=== PATIENT | female | born 1940 | race Caucasian/White ===

== ENCOUNTER 2017-11-22 10:09 | Outpatient (CLI) | payer MEDICARE | END 2017-11-22 10:10 | disposition home or self-care (01) | LOC: BICULT 10:09 | PROVIDERS: ATTEND Internal Medicine Gastroenterology | DX: K76.9 Liver disease, unspecified (principal); K76.0 Fatty (change of) liver, not elsewhere classified | CPT/HCPCS: 76705 ==

== ENCOUNTER 2018-02-02 09:35 | Inpatient (IN) | payer MEDICARE ==
[2018-02-02 10:05] LABS: #Lymphocytes 0.5 thou/uL (1.20-3.40); #Monocytes 0.6 thou/uL (0.11-0.59); #Neutrophils 8.9 thou/uL (1.40-6.50); %Basophils 0.1 % (0.0-1.0); %Eosinophils 0.1 % (0.0-10.0); %Lymphocytes 4.9 % (21.0-51.0); %Monocytes 6.2 % (0.0-10.0); %Neutrophils 88.7 % (42.0-75.0); Mean Corpuscular HGB CONC 34.4 g/dL (32.0-36.0); Mean Corpuscular Hemoglobin 31.6 pg (27.0-31.0); Mean Corpuscular Volume 91.8 fl (81.0-99.0); Mean Platelet Volume 7.9 fL (7.4-10.4); Platelet Count 141 thou/uL (130-400); RBC Distribution Width 12.4 % (11.5-14.5); Red Blood Cell (RBC) Count 4.43 mill/uL (4.20-5.40)
[2018-02-02 10:26] LABS: ALT (SGPT) 36 U/L (8-55); AST (SGOT) 51 U/L (5-34); Alkaline Phosphatase 71 U/L (40-150); Anion Gap 16 mmol/L (10-20); BUN (Urea Nitrogen) 20 mg/dL (9.8-20.1); Bilirubin, Total 1.5 mg/dL (0.2-1.2); CK (CPK) 91 U/L (29-168); Calc. Creatinine Clearance 0 mL/min (70-130); Calcium 9.2 mg/dL (7.8-10.44); Carbon Dioxide 22 mmol/L (23-31); Chloride 100 mmol/L (98-107); Estimated GFR-MDRD 53; Globulin 3.2 g/dL (2.4-3.5); Glucose 178 mg/dL (83-110); Potassium 4.3 mmol/L (3.5-5.1); Protein, Total 7.2 g/dL (6.0-8.3); Sodium 134 mmol/L (136-145)
[2018-02-02 10:29] LABS: CKMB 0.8 ng/mL (0-6.6); Troponin I 0.018 ng/mL (< 0.028)
[2018-02-02 10:38] LABS: Bilirubin Negative (Negative); Blood, Urine Small (Negative); Glucose, Urine (Dipstick) Negative (Negative); Leukocyte Negative (Negative); Nitrite Negative (Negative); Protein, Urine (Dipstick) 100 mg/dL (Neg-Trace); Specific Gravity, Urine 1.025 (1.005-1.030)
[2018-02-02 10:42] LABS: Clarity Clear (Clear)
--- NOTE | 2018-02-02 10:52 | RAD ---
CHEST 1 VIEW: Date: 02/02/18 HISTORY: Fever. Altered mental status. COMPARISON: None. FINDINGS: Normal cardiac silhouette. Pulmonary vessels and hilum are normal. Costophrenic angles are clear. No masses or consolidation. No pneumothorax or osseous abnormalities. IMPRESSION: No acute cardiopulmonary process. POS: [facility]
[2018-02-02 10:53] LABS: Bacteria/HPF None Seen HPF (None Seen); RBC/HPF 0-3 HPF (0-3); Renal Epithelial 0-3 HPF (0-3); Squamous Epithelial 0-3 HPF (0-3); Transitional Epithelial 0-3 HPF (0-3); WBC/HPF 0-3 HPF (0-3)
[2018-02-02 10:54] LABS: Hyaline Casts/LPF 0-3 HYALINE CAST LPF (0-3 Hyaline); Other Casts/LPF 0-3 COARSE GRAN LPF (0-3 Hyaline)
[2018-02-02] MEDS ORDERED: Acetaminophen 500 MG TAB ONE (11:36)
[2018-02-02] MEDS ORDERED: Azithromycin 500 MG VIAL ONE (12:17)
[2018-02-02] MEDS ORDERED: cefTRIAXone\\ROCEPHIN 2 GM VIAL ONE (12:17)
[2018-02-02] MEDS ORDERED: Senokot 8.6 MG TAB PO PRN (14:49)
[2018-02-02] MEDS ORDERED: Chloraseptic Spray 180 ml Bottle PO PRN (14:49)
[2018-02-02] MEDS ORDERED: CeleCOXIB 100 MG CAP PO PRN (14:49)
[2018-02-02] MEDS ORDERED: Eucerin (Mineral Oil/Petrolatum,White) 30 gm Jar TOP PRN (14:49)
[2018-02-02] MEDS ORDERED: hydrALAZINE 20 MG/ML VIAL SLOW IVP PRN (14:49)
[2018-02-02] MEDS ORDERED: Milk Of Magnesia 30 ML UDCUP PO PRN (14:49)
[2018-02-02] MEDS ORDERED: Loratadine 10 MG TAB PO PRN (14:49)
[2018-02-02] MEDS ORDERED: Acetaminophen 325 MG TAB PO PRN (14:49)
[2018-02-02] MEDS ORDERED: HYDROcodone/Acetaminophen 5/325 mg Tablet PO PRN (14:49)
[2018-02-02] MEDS ORDERED: Ondansetron HCl/PF 4 MG/2 ML Vial IVP PRN (14:49)
[2018-02-02] MEDS ORDERED: Loperamide HCl 2 MG CAP PO PRN (14:49)
[2018-02-02] MEDS ORDERED: Ondansetron ODT 4 MG TAB PO PRN (14:49)
[2018-02-02] MEDS ORDERED: Cyclobenzaprine 10 MG TAB PO PRN (14:49)
[2018-02-02] MEDS ORDERED: Mag-Al 1200 mg/1200 mg/30 ML UDCUP PO PRN (14:49)
[2018-02-02] MEDS ORDERED: Sodium Chloride 0.65% Nasal 44 ML BOT EA NARE PRN (14:49)
[2018-02-02] MEDS ORDERED: Artificial Tears 18 DROP/0.9 ML EA EYE PRN (14:49)
[2018-02-02] MEDS ORDERED: Diabetic Tussin 200 MG/10 ML UDCUP PO PRN (14:49)
[2018-02-02] MEDS ORDERED: Zolpidem Tartrate 5 MG TAB PO PRN (14:49)
[2018-02-02 15:06] VITALS: BMI 38.0
--- NOTE | 2018-02-02 15:13 | HP ---
PRIMARY CARE PHYSICIAN: Norma Jacobsen M.D. REASON FOR ADMISSION: Sepsis, atypical pneumonia. HISTORY OF PRESENT ILLNESS: A 77-year-old female, who has underlying history of nonalcoholic steatoh epatitis, who presented to emergency room with complaint of fever, body ache, joint pain started yest erday. The patient reports that she was feeling very weak with a high-grade fever with generalized body ache , joint pain, nausea, and fatigue. The patient reported temperature at home 104.6. The patient took some medication and she was trying to relieve her fever with wet cloth. She was feeling somewhat be tter during night time, but this morning she is to continue to have nausea, headache, neck pain, body ache, and joint pain and she was still having fever. The patient also noticed dry cough since yeste rday. She denies any recent travel. She denies any sick exposure. She denies any rash. She denies any recent travel. She denies any associated diarrhea, constipation, melena, or hematochezia. She denies any chest congestion. She denies any sore throat. The patient reports that she is up to date in her all immunizations. This morning when she presented to emergency room, she was tachycardic with pulse 110, temperature 101.6. She was hypoxic with 85% on room air. She was maintaining oxygen 95% on 2 liter oxygen. When oxygen was discontinued in the emergency room and she was walking, her oxygen saturation dropped again. The patient's chest x-ray w as normal. Her routine blood test was also unremarkable. At this point, the patient is being admitt ed to medical floor for sepsis from unknown source. We are suspecting atypical community-acquired pn eumonia. REVIEW OF SYSTEMS: The following complete review of systems was negative, unless otherwise mentioned in the HPI or below: Constitutional: Weight loss or gain, ability to conduct usual activities. Skin: Rash, itching. Eyes: Double vision, pain. ENT/Mouth: Nose bleeding, neck stiffness, pain, tenderness. Cardiovascular: Palpitations, dyspnea on exertion, orthopnea. Respiratory: Shortness of breath, wheezing, cough, hemoptysis, fever or night sweats. Gastrointestinal: Poor appetite, abdominal pain, heartburn, nausea, vomiting, constipation, or diarr hea. Genitourinary: Urgency, frequency, dysuria, nocturia. Musculoskeletal: Pain, swelling. Neurologic/Psychiatric: Anxiety, depression. Allergy/Immunologic: Skin rash, bleeding tendency. Please see my HPI for pertinent positive and negative. All other review of systems reviewed and nega tive except as mentioned in the HPI. ALLERGIES: TRAMADOL. CURRENT HOME MEDICATIONS: Henriette 10 one tablet q.6 hourly p.r.n., Ventolin 2 puffs q.6 hourly p.r.n., align 1 capsule daily, ascorbic acid 500 mg p.o. daily, aspirin 81 mg p.o. daily, Celebrex 200 mg da deborah, vitamin D3 at 1000 unit p.o. daily, Flexeril 10 mg t.i.d. p.r.n., Lasix 40 mg p.o. daily, Imdur 30 mg p.o. daily, mometasone topical application daily, Bystolic 5 mg p.o. at bedtime, omega 3 fish o il 1 capsule device daily, Protonix 40 mg p.o. daily, ramipril 10 mg p.o. daily, and Crestor 40 mg p. o. at bedtime. PAST MEDICAL HISTORY: Nonalcoholic steatohepatitis, osteoarthritis, GERD, hypertension, dyslipidemia , coronary artery disease, asthma, and morbid obesity. PAST SURGICAL HISTORY: Cardiac catheterization with stent, hysterectomy, tonsillectomy, knee replace ment, and lumbar laminectomy. SOCIAL HISTORY: The patient is . She is a retired school coordinator. She is an ex-smoker. She denies any tobacco, alcohol, or illicit drug abuse at this point. PAST PSYCHIATRIC HISTORY: Reviewed and negative. FAMILY HISTORY: Father has history of myocardial infarction. Mother has history of Parkinson's dise ase, and one brother diagnosed with renal cell carcinoma. PHYSICAL EXAMINATION: VITAL SIGNS: On arrival, blood pressure 139/66, pulse 110, respiratory rate 28, temperature 101.6, s aturation 85% on room air, weight 99.7 kilograms. GENERAL: Patient is currently alert, awake, no acute distress. HEENT: Head: Normocephalic, atraumatic. Eyes: Pupils round, reactive to light. Extraocular muscl e intact. ENT: Oropharynx within normal limits. Moist mucous membranes. No oral lesion, no pharyngeal erythe ma, no exudate. NECK: Supple, no JVD, no thyromegaly, no carotid bruit, no jugular venous distention. LUNGS: Clear to auscultation without any rhonchi or rales. CARDIAC: S1, S2 appears regular, tachycardia, no murmur, no gallop, no rub. ABDOMEN: Morbid obesity limiting examination. No Hernandez sign, no guarding, no rigidity, no rebound, no suprapubic tenderness. BACK: Unremarkable, no CVA tenderness. EXTREMITIES: Upper extremity: Passive movement of all joints are normal. Lower extremity: Passive movement of all joints are normal. No edema. Good peripheral pulsation. SKIN: No skin rash. HEMATOLOGIC: No lymphadenopathy. PSYCHIATRIC: Normal affect. NEUROLOGIC: The patient is alert, oriented x3. Cranial nerves II-XII intact. Motor and sensation w ithin normal limits. No focal neurological deficit noted. No meningeal signs of irritation. SIGNIFICANT LABORATORY DATA: Chest x-ray based on my review, no acute cardiopulmonary process. CBC: WBC 10.0, hemoglobin 14.0, platelet 141 with left shift. BMP: Sodium 134, potassium 4.3, chloride 100, carbon dioxide 22, BUN 20, creatinine 1.01, glucose 178, and calcium 9.2. LFT: AST 51, ALT 36, alkaline phosphatase 71, albumin 4.0. CK 91, CK-MB 0.8, troponin I less than 0 .018. Lactic acid 1.3. Urinalysis, blood trace. ASSESSMENT AND PLAN: 1. Sepsis with acute organ dysfunction. Source of infection is most likely atypical community-acqui red pneumonia given clinical presentation with a cough and hypoxic respiratory failure. The patient will be given broad spectrum antibiotic therapy with Rocephin and levofloxacin. We will check a urin e legionella antigen and Streptococcal pneumonia antigen and virus respiratory panel testing. Her in fluenza screen is negative. We will also give her Solu-Medrol 20 mg IV q.8 hourly. We will follow u p on culture result. We will also send urine culture. 2. Atypical community-acquired pneumonia. The patient will be kept on Rocephin, levofloxacin, Mucin ex 600 mg twice daily, DuoNeb therapy q.6 hourly p.r.n. basis. Patient will be given gentle IV fluid at 70 mL per hour. 3. Nonalcoholic steatohepatitis. 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 Currently, problem is stable. 4. Coronary artery disease with history of stent. We will continue Bystolic 5 mg p.o. at bedtime, C restor 40 mg p.o. at bedtime, ramipril 10 mg p.o. daily, and aspirin 81 mg p.o. daily. 5. Chronic low back pain. Continue Flexeril 10 mg t.i.d. p.r.n. and pain control with Henriette p.r.n. basis and Flexeril 10 mg t.i.d. p.r.n. 6. Osteoarthritis. Continue celecoxib 200 mg p.o. daily. 7. Hypertension. Continue ramipril 10 mg p.o. daily, Imdur 30 mg p.o. daily. 8. Dyslipidemia. Continue Crestor 40 mg p.o. at bedtime. 9. Morbid obesity. Dietary education given. Healthy lifestyle measures discussed with the patient. 10. Hyperglycemia. We will check a hemoglobin A1c to rule out any associated diabetes. 11. Deep vein thrombosis prophylaxis. Lovenox 40 mg subcu daily. 12. Gastrointestinal prophylaxis. Protonix 40 mg p.o. daily. 13. CODE STATUS: The patient is FULL CODE. Patient's is surrogate decision maker. 14. Disposition plan based on clinical course. If this patient does not get any fever in next 24-48 hours, then we will consider discharging her home on p.o. levofloxacin. 15. Acute hypoxic respiratory failure. We will monitor her oxygen saturation while in hospital, mos t likely related with underlying community-acquired atypical pneumonia/acute bronchitis. 16. Plan of care discussed with the patient and family member at bedside in the emergency room. 17. Gastroesophageal reflux disease. Continue Protonix 40 mg p.o. daily.
[2018-02-02 17:39] LABS: Legionella Urinary Ag Negative (Negative); Strep pneumo Urine Ag NEGATIVE (NEGATIVE)
[2018-02-02] MEDS: Sodium Chloride 0.9% 1,000 ML IV SCH (18:13)
[2018-02-02] MEDS: guaiFENesin ER 600 MG TAB PO SCH (19:59)
[2018-02-02] MEDS ORDERED: Rosuvastatin 20 MG TAB PO SCH (21:00)
[2018-02-03] MEDS: Sodium Chloride 0.9% 1,000 ML IV SCH (03:49)
[2018-02-03 05:45] LABS: Hemoglobin A1c 6.5 % (4.0-6.0)
[2018-02-03 05:50] LABS: ALT (SGPT) 29 U/L (8-55); AST (SGOT) 39 U/L (5-34); Albumin 3.4 g/dL (3.4-4.8); Alkaline Phosphatase 57 U/L (40-150); Anion Gap 11 mmol/L (10-20); BUN (Urea Nitrogen) 18 mg/dL (9.8-20.1); Bilirubin, Total 0.7 mg/dL (0.2-1.2); Calc. Creatinine Clearance 90 mL/min (70-130); Calcium 8.6 mg/dL (7.8-10.44); Carbon Dioxide 22 mmol/L (23-31); Chloride 108 mmol/L (98-107); Estimated GFR-MDRD 64; Globulin 2.5 g/dL (2.4-3.5); Glucose 101 mg/dL (83-110); Potassium 4.3 mmol/L (3.5-5.1); Protein, Total 5.9 g/dL (6.0-8.3); Sodium 137 mmol/L (136-145)
[2018-02-03] MEDS ORDERED: PROVENTIL INHALER 6.7 G (200 INHALATIONS) INH PRN (06:47)
[2018-02-03 07:01] LABS: #Lymphocytes 1.2 thou/uL (1.20-3.40); #Monocytes 0.7 thou/uL (0.11-0.59); #Neutrophils 5.5 thou/uL (1.40-6.50); %Basophils 0.2 % (0.0-1.0); %Eosinophils 0.4 % (0.0-10.0); %Lymphocytes 15.7 % (21.0-51.0); %Monocytes 9.3 % (0.0-10.0); %Neutrophils 74.5 % (42.0-75.0); Hemoglobin 12.5 g/dL (12.0-16.0); Mean Corpuscular HGB CONC 33.9 g/dL (32.0-36.0); Mean Corpuscular Hemoglobin 31.4 pg (27.0-31.0); Mean Corpuscular Volume 92.9 fl (81.0-99.0); Mean Platelet Volume 7.8 fL (7.4-10.4); PLT Morphology Comment Appears Decreased; Platelet Count 112 thou/uL (130-400); RBC Distribution Width 12.6 % (11.5-14.5); Red Blood Cell (RBC) Count 3.96 mill/uL (4.20-5.40); White Blood Cell (WBC) Count 7.4 thou/uL (4.8-10.8)
[2018-02-03] MEDS: guaiFENesin ER 600 MG TAB PO SCH (08:28)
[2018-02-03] MEDS ORDERED: Saccharomyces boulardii 250 MG CAP PO SCH (09:00)
[2018-02-03] MEDS ORDERED: Ramipril 5 MG CAP PO SCH (09:00)
[2018-02-03] MEDS ORDERED: BIFIDOBACTERIUM INFANTIS 10.5 MG PO SCH (09:00)
[2018-02-03] MEDS ORDERED: Aspirin 81 mg Enteric Coated Tablet PO SCH (09:00)
[2018-02-03] MEDS ORDERED: Cholecalciferol (Vitamin D3) 400 UNITS TAB PO SCH (09:00)
[2018-02-03] MEDS ORDERED: Fish Oil 1,000 MG CAP PO SCH (09:00)
[2018-02-03] MEDS ORDERED: Nebivolol HCl 5 MG TAB PO SCH (09:00)
[2018-02-03] MEDS ORDERED: Furosemide 40 MG TAB PO SCH (09:00)
[2018-02-03] MEDS ORDERED: Ascorbic Acid 500 mg Chewable Tablet PO SCH (09:00)
[2018-02-03] MEDS ORDERED: Enoxaparin Sodium 40 MG/0.4 ML SYRINGE SC SCH (09:00)
--- NOTE | 2018-02-03 09:39 | PDOC.PN ---
- Subjective Encounter Start Date: 02/03/18 Encounter Start Time: 07:50 -: old records requested/rev Patient seen and examined for sepsis. No new complaints. No overnight events today dramatically better, no fever, on room air - Objective Resuscitation Status: Resuscitation Status FULL:Full Resuscitation MAR Reviewed: Yes Vital Signs & Weight: Vital Signs (12 hours) Temp Pulse Resp BP Pulse Ox 02/03/18 08:00 98.2 F 65 16 02/03/18 07:50 98.2 F 65 16 130/69 92 L 02/03/18 04:20 92 L Weight Weight 221 lb 12.8 oz I&O: 02/02/18 02/03/18 02/04/18 06:59 06:59 06:59 Intake Total 1090 Balance 1090 Result Diagrams: 02/03/18 04:39 02/03/18 04:39 Phys Exam - Physical Examination Constitutional: NAD HEENT: PERRLA, moist MMs, sclera anicteric Neck: no JVD, supple Respiratory: no wheezing, no rales, no rhonchi Cardiovascular: RRR, no significant murmur, no rub Gastrointestinal: soft, non-tender, no distention, positive bowel sounds Musculoskeletal: no edema, pulses present Neurological: non-focal, normal sensation, moves all 4 limbs Lymphatic: no nodes Psychiatric: normal affect, A&O x 3 Skin: no rash, normal turgor Dx/Plan (1) Acute respiratory failure with hypoxia Code(s): J96.01 - ACUTE RESPIRATORY FAILURE WITH HYPOXIA Status: Acute (2) Atypical pneumonia Code(s): J18.9 - PNEUMONIA, UNSPECIFIED ORGANISM Status: Acute (3) Sepsis with acute organ dysfunction Code(s): A41.9 - SEPSIS, UNSPECIFIED ORGANISM; R65.20 - SEVERE SEPSIS WITHOUT SEPTIC SHOCK Status: Acute (4) Borderline type 2 diabetes mellitus Code(s): R73.03 - PREDIABETES Status: Chronic (5) CAD (coronary artery disease) Code(s): I25.10 - ATHSCL HEART DISEASE OF [place] CORONARY ARTERY W/O ANG PCTRS Status: Chronic (6) Chronic back pain Code(s): M54.9 - DORSALGIA, UNSPECIFIED; G89.29 - OTHER CHRONIC PAIN Status: Chronic (7) Dyslipidemia Code(s): E78.5 - HYPERLIPIDEMIA, UNSPECIFIED Status: Chronic (8) GERD (gastroesophageal reflux disease) Code(s): K21.9 - GASTRO-ESOPHAGEAL REFLUX DISEASE WITHOUT ESOPHAGITIS Status: Chronic (9) Hypertension Code(s): I10 - ESSENTIAL (PRIMARY) HYPERTENSION Status: Chronic (10) Non-alcoholic fatty liver disease Status: Chronic (11) Obesity (BMI 30-39.9) Code(s): E66.9 - OBESITY, UNSPECIFIED Status: Chronic (12) Osteoarthritis Code(s): M19.90 - UNSPECIFIED OSTEOARTHRITIS, UNSPECIFIED SITE Status: Chronic - Plan cont current plan of care, continue antibiotics * culture negative so far * doing great * check room air sats * tolerating po well * continue rocephin and levaquin * if pt decide to go home if stable, levaquin po on discharge * medication reviewed as below * symptomatic treatment. Review of Systems - Review of Systems Constitutional: negative: fever, chills, sweats, weakness, malaise, other Eyes: negative: Pain, Vision Change, Conjunctivae Inflammation, Eyelid Inflammation, Redness, Other ENT: negative: Ear Pain, Ear Discharge, Nose Pain, Nose Discharge, Nose Congestion, Mouth Pain, Mouth Swelling, Throat Pain, Throat Swelling, Other Respiratory: negative: Cough, Dry, Shortness of Breath, Hemoptysis, SOB with Excertion, Pleuritic Pain, Sputum, Wheezing Cardiovascular: negative: chest pain, palpitations, orthopnea, paroxysmal nocturnal dyspnea, edema, light headedness, other Gastrointestinal: negative: Nausea, Vomiting, Abdominal Pain, Diarrhea, Constipation, Melena, Hematochezia, Other Genitourinary: negative: Dysuria, Frequency, Incontinence, Hematuria, Retention , Other Musculoskeletal: negative: Neck Pain, Shoulder Pain, Arm Pain, Back Pain, Hand Pain, Leg Pain, Foot Pain, Other Skin: negative: Rash, Lesions, Som, Bruising, Other Neurological: negative: Weakness, Numbness, Incoordination, Change in Speech, Confusion, Seizures, Other - Medications/Allergies Allergies/Adverse Reactions: Allergies Allergy/AdvReac Type Severity Reaction Status Date / Time tramadol Allergy Verified 02/02/18 15:49 Medications: Current Medications Acetaminophen (Tylenol) 650 mg PO Q4H PRN PRN Reason: Headache/Fever or Pain Hydrocodone Bitart/Acetaminophen ([place] 5/325) 1 tab PO Q4H PRN PRN Reason: Moderate Pain (4-6) Al Hydroxide/Mg Hydroxide (Maalox) 30 ml PO Q6H PRN PRN Reason: Heartburn or Indigestion Albuterol Sulfate (Proventil Hfa) 2 puff INH Q4H PRN PRN Reason: SOB &/or Wheezing Albuterol/Ipratropium (Duoneb) 3 ml NEB [id number] PRN PRN Reason: SOB &/or Wheezing Artificial Tears (Tears Naturale) 0 drop EA EYE PRN PRN PRN Reason: Dry Eyes Ascorbic Acid (Vitamin C) 500 mg PO DAILY [facility] Last Admin: 02/03/18 08:28 Dose: 500 mg Aspirin (Aspirin Chewable) 81 mg PO DAILY [facility] Last Admin: 02/03/18 08:28 Dose: 81 mg Aspirin (Ecotrin) 162 mg PO DAILY [facility] Last Admin: 02/03/18 08:28 Dose: 162 mg Celecoxib (Celebrex) 200 mg PO BID PRN PRN Reason: Muscle Pain Cholecalciferol (Vitamin D3) 2,000 units PO DAILY [facility] Last Admin: 02/03/18 08:27 Dose: 2,000 units Cyclobenzaprine HCl (Flexeril) 10 mg PO TID PRN PRN Reason: Muscle Spasm Enoxaparin Sodium (Lovenox) 40 mg SC 0900 [facility] Last Admin: 02/03/18 08:29 Dose: Not Given Fish Oil (Fish Oil) 1,000 mg PO DAILY [facility] Last Admin: 02/03/18 08:27 Dose: 1,000 mg Furosemide (Lasix) 40 mg PO DAILY [facility] Last Admin: 02/03/18 08:28 Dose: 40 mg Guaifenesin (Robitussin Sf) 200 mg PO Q4H PRN PRN Reason: Cough Guaifenesin (Mucinex) 600 mg PO Q12HR [facility] Last Admin: 02/03/18 08:28 Dose: 600 mg Hydralazine HCl (Apresoline) 10 mg SLOW IVP Q4H PRN PRN Reason: Systolic BP > 180 Ceftriaxone Sodium 2 gm/ (Sodium Chloride) 100 mls @ 200 mls/hr IVPB 1200 [facility] Levofloxacin 750 mg/ Device 150 mls @ 100 mls/hr IVPB 1800 [facility] Last Admin: 02/02/18 18:13 Dose: 150 mls Sodium Chloride (Normal Saline 0.9%) 1,000 mls @ 70 mls/hr IV .[id number] [facility] Last Admin: 02/03/18 03:49 Dose: 1,000 mls Isosorbide Mononitrate (Imdur Er) 30 mg PO DAILY [facility] Last Admin: 02/03/18 08:28 Dose: 30 mg Loperamide HCl (Imodium) 2 mg PO PRN PRN PRN Reason: Diarrhea/Loose Stools Loratadine (Claritin) 10 mg PO DAILYPRN PRN PRN Reason: Sinus Symptoms Magnesium Hydroxide (Milk Of Magnesium) 30 ml PO DAILYPRN PRN PRN Reason: Constipation Mineral Oil/White Petrolatum (Eucerin Cream) 0 gm TOP BIDPRN PRN PRN Reason: Dry Skin Nebivolol (Bystolic) 5 mg PO DAILY [facility] Last Admin: 02/03/18 08:28 Dose: 5 mg Ondansetron HCl (Zofran Odt) 4 mg PO Q6H PRN PRN Reason: Nausea/Vomiting Ondansetron HCl (Zofran) 4 mg IVP Q6H PRN PRN Reason: Nausea/Vomiting Pantoprazole Sodium (Protonix) 40 mg PO DAILY [facility] Last Admin: 02/03/18 08:28 Dose: 40 mg (Bifidobacterium Infantis [Align] 10. 5 Mg) Hm Med 0 each PO DAILY [facility] Phenol (Chloraseptic [place] 180 Ml Bot) 0 ml PO PRN PRN PRN Reason: Sore Throat Ramipril (Altace) 10 mg PO DAILY [facility] Last Admin: 02/03/18 09:09 Dose: Not Given Rosuvastatin Calcium (Crestor) 40 mg PO [facility] Last Admin: 02/02/18 19:59 Dose: 40 mg Saccharomyces Boulardii (Florastor) 250 mg PO DAILY [facility] Last Admin: 02/03/18 08:28 Dose: 250 mg Senna (Senokot) 2 tab PO HSPRN PRN PRN Reason: Constipation Sodium Chloride ([place] Nasal [place] 0.65%) 0 ml EA NARE QIDPRN PRN PRN Reason: Nasal Congestion Zolpidem Tartrate (Ambien) 5 mg PO HSPRN PRN PRN Reason: Insomnia
--- NOTE | 2018-02-03 10:55 | DIS ---
DATE OF ADMISSION: 02/02/2018 DATE OF DISCHARGE: Pending. PRIMARY CARE PHYSICIAN: Dr. Norma Jacobsen. DISCHARGE DISPOSITION: Home. PRIMARY DISCHARGE DIAGNOSES: 1. Sepsis with acute organ dysfunction, resolved. 2. Acute respiratory failure with hypoxia, resolved. 3. Atypical pneumonia. 4. Borderline type 2 diabetes mellitus. SECONDARY DISCHARGE DIAGNOSES: Coronary artery disease, chronic low back pain, dyslipidemia, hyperte nsion, gastroesophageal reflux disease, nonalcoholic fatty liver disease, obesity with BMI 38, osteoa rthritis. PRIMARY PROCEDURE/OPERATION: None. RADIOLOGICAL INVESTIGATION: Chest x-ray normal. SIGNIFICANT LABORATORY DATA: WBC 7.4, hemoglobin 12.5, platelets 112. Sodium 137, creatinine 0.86, hemoglobin A1c is 6.5, AST 39, ALT 29, alkaline phosphatase 57. Cardiac enzymes negative. Lactic ac id 1.3. Urine legionella antigen and Streptococcal pneumonia antigen negative. Blood culture negati ve. Respiratory virus panel negative. Influenza panel negative. Urine culture negative. DISCHARGE MEDICATIONS: Levofloxacin 750 mg p.o. daily for 7 days. Patient will continue all her previous medications, ProAir HFA 2 puffs q.4 hourly p.r.n., vitamin C 5 00 mg p.o. daily, aspirin 81 mg 2 tablets daily, Align 10.5 mg p.o. daily, Celebrex 200 mg p.o. b.i.d . p.r.n., vitamin D3 2000 unit p.o. daily, Flexeril 10 mg t.i.d. p.r.n., multivitamin 1 tablet p.o. d aily, Lasix 40 mg p.o. daily, [place] 10 one or two tablets q.6 hourly p.r.n., Imdur 15 mg p.o. daily, mometasone topical application b.i.d., Bystolic 5 mg p.o. at bedtime, fish oil 2800 mg p.o. b.i.d., P rotonix 40 mg p.o. daily, ramipril 10 mg daily, Crestor 40 mg p.o. at bedtime. CONTRAINDICATIONS: None. CODE STATUS: FULL CODE. INPATIENT CONSULTANTS: None. ALLERGIES: TRAMADOL. TEST RESULTS PENDING ON DISCHARGE: Culture result. DISCHARGE PLAN: Post hospital, the patient will follow up with Dr. Jacobsen as instructed. HOSPITAL COURSE: A 77-year-old female, who was admitted by me. Please see my HPI for further detail . The patient was having generalized body ache, neck pain, headache, fever, and that is why she came to emergency room. In the emergency room, she was hypoxic. Her chest x-ray was normal, but she was having cough. We suspected atypical pneumonia. Patient was meeting sepsis criteria and that is why we admitted her to medical floor. She was treated with IV fluid, Rocephin, and Levaquin. The next day, the patient dramatically improved and her oxygen saturation was normal. She was afebrile. She was feeling much better. She was ambulatory and tolerating p.o. well. If the patient wants to go home later on today, which she expressed wish this morning, then we will c onsider discharge home and follow up with primary care physician in 1 week. Primary care physician w ill follow up on culture result. While in hospital, viral panel negative, blood culture negative, an d urine culture negative so far. The patient is seen and examined at bedside today. Please see my progress note from today for furthe r detail.
[2018-02-03] MEDS ORDERED: cefTRIAXone\\ROCEPHIN 2 GM in Sodium Chloride 0.9% 100 ML IVPB SCH (12:00)
[2018-02-03 12:09] VITALS: BP 144/67; TEMP 98.1
== END 2018-02-03 14:36 | disposition home or self-care (01) | DRG 871 ==
LOC: ERS 09:35 → T4-A 14:29
PROVIDERS: ADMIT Internal Medicine; ATTEND Internal Medicine
DX: A41.9 Sepsis, unspecified organism (principal); J18.9 Pneumonia, unspecified organism; J96.01 Acute respiratory failure with hypoxia; R65.20 Severe sepsis without septic shock; K75.81 Nonalcoholic steatohepatitis (NASH); I25.10 Atherosclerotic heart disease of native coronary artery without angina pectoris; G89.29 Other chronic pain; M54.5 Low back pain; M19.90 Unspecified osteoarthritis, unspecified site; I10 Essential (primary) hypertension; K21.9 Gastro-esophageal reflux disease without esophagitis; E78.5 Hyperlipidemia, unspecified; J45.909 Unspecified asthma, uncomplicated; E66.01 Morbid (severe) obesity due to excess calories; Z68.38 Body mass index [BMI] 38.0-38.9, adult; R73.03 Prediabetes; Z88.5 Allergy status to narcotic agent; Z79.82 Long term (current) use of aspirin; Z79.899 Other long term (current) drug therapy; Z95.5 Presence of coronary angioplasty implant and graft
CPT/HCPCS: 36415; 51701; 71045; 80053; 81003; 81015; 82553; 83036; 83605; 84484; 85025; 87040; 87086; 87633; 87798; 87804; 87899; 93005; 94760; 96361; 96365; 96367; A4353; J0456; J0696; J1650; J1956; J7050

== ENCOUNTER 2018-02-05 09:52 | Emergency (ER) | payer MEDICARE ==
[2018-02-05 10:50] LABS: #Eosinphils 0.1 thou/uL (0.0-0.7); #Monocytes 0.5 thou/uL (0.11-0.59); #Neutrophils 2.8 thou/uL (1.40-6.50); %Basophils 0.6 % (0.0-1.0); %Eosinophils 2.8 % (0.0-10.0); %Lymphocytes 22.1 % (21.0-51.0); %Monocytes 11.6 % (0.0-10.0); %Neutrophils 62.8 % (42.0-75.0); Hemoglobin 14.2 g/dL (12.0-16.0); Mean Corpuscular HGB CONC 33.8 g/dL (32.0-36.0); Mean Corpuscular Hemoglobin 30.8 pg (27.0-31.0); Mean Platelet Volume 7.1 fL (7.4-10.4); Platelet Count 189 thou/uL (130-400); RBC Distribution Width 12.2 % (11.5-14.5); Red Blood Cell (RBC) Count 4.62 mill/uL (4.20-5.40); White Blood Cell (WBC) Count 4.5 thou/uL (4.8-10.8)
[2018-02-05 11:11] LABS: ALT (SGPT) 47 U/L (8-55); AST (SGOT) 58 U/L (5-34); Albumin 4.1 g/dL (3.4-4.8); Alkaline Phosphatase 75 U/L (40-150); Anion Gap 14 mmol/L (10-20); BUN (Urea Nitrogen) 20 mg/dL (9.8-20.1); Bilirubin, Total 0.8 mg/dL (0.2-1.2); CRP (Inflammatory) 3.89 mg/dL (= or < 0.5); Calc. Creatinine Clearance 0 mL/min (70-130); Calcium 9.8 mg/dL (7.8-10.44); Carbon Dioxide 23 mmol/L (23-31); Chloride 102 mmol/L (98-107); Estimated GFR-MDRD 45; Globulin 3.1 g/dL (2.4-3.5); Glucose 137 mg/dL (83-110); Potassium 4.2 mmol/L (3.5-5.1); Protein, Total 7.2 g/dL (6.0-8.3); Sodium 135 mmol/L (136-145)
--- NOTE | 2018-02-05 12:04 | ULT ---
RIGHT LOWER EXTREMITY VENOUS DUPLEX EXAM: Date: 02/05/18 HISTORY: Right lower extremity edema, pain, and redness. FINDINGS: Real-time color Doppler evaluation of the right lower extremity was performed from groin to calf. Thi s includes evaluation of the common femoral, superficial and profunda femoral, saphenous, popliteal, and trifurcation veins. This shows patent deep venous system. There is normal compressibility and aug mentation. There is no evidence of deep venous thrombosis. Of incidental note are right inguinal lymp h nodes. IMPRESSION: No evidence of deep venous thrombosis of the right lower extremity. POS: [facility]
== END 2018-02-05 11:40 | disposition home or self-care (01) ==
LOC: ERS 09:52
DX: L03.115 Cellulitis of right lower limb (principal); K21.9 Gastro-esophageal reflux disease without esophagitis; I10 Essential (primary) hypertension; E78.00 Pure hypercholesterolemia, unspecified
CPT/HCPCS: 36415; 80053; 85025; 85652; 86140

== ENCOUNTER 2018-05-14 07:37 | Outpatient (CLI) | payer MEDICARE ==
--- NOTE | 2018-05-14 09:24 | ULT ---
HEPATIC SONOGRAM WITH DUPLEX EVALUATION: HISTORY: Chronic liver disease. Steatohepatitis. FINDINGS: Gallbladder has a normal appearance without evidence of stones. The common duct is 0.3 cm. Liver is unremarkable without focal mass or intrahepatic biliary dilatation. No free fluid. The spleen is 9 .6 cm in length. Good color and spectral Doppler flow within the hepatic and splenic arteries. Portal venous flow is towards the liver. Hepatic venous flow towards the IVC. IMPRESSION: 1. No evidence of gallstones or biliary obstruction. No significant abnormalities demonstrated. 2. No sonographic evidence of portal venous hypertension. POS: [facility]
== END 2018-05-14 07:38 | disposition home or self-care (01) ==
LOC: ULT 07:37
PROVIDERS: ATTEND Internal Medicine Gastroenterology
DX: K76.89 Other specified diseases of liver (principal); K21.9 Gastro-esophageal reflux disease without esophagitis; R13.10 Dysphagia, unspecified
CPT/HCPCS: 76705

== ENCOUNTER 2018-06-28 15:21 | Outpatient (CLI) | payer MEDICARE | END 2018-06-28 15:22 | disposition home or self-care (01) | LOC: BICMAMMO 15:21 | PROVIDERS: ATTEND Internal Medicine | DX: Z12.31 Encounter for screening mammogram for malignant neoplasm of breast (principal); R92.1 Mammographic calcification found on diagnostic imaging of breast | CPT/HCPCS: 77063; 77067 ==

== ENCOUNTER 2019-01-01 09:49 | Outpatient (CLI) | payer MEDICARE ==
--- NOTE | 2019-01-01 10:53 | ULT ---
US Hepatic Doppler History: [Hepatic necrosis] Comparison: Ultrasound 2018 Findings: Real-time grayscale, color, and spectral analysis of the liver was performed. Diffuse increased hepatic echotexture. Liver measures 14.7 cm in length. Common bile duct measures 4 mm, normal. Gallbladder is normal. Spleen measures 10.2 cm in length. Normal phasicity and directional flow within the hepatic artery, portal vein, and IVC. Visualized por tion of pancreas is unremarkable. Impression: Diffuse increased hepatic echotexture suggesting steatosis. Normal directional vascular f low.
== END 2019-01-01 09:50 | disposition home or self-care (01) ==
LOC: BICULT 09:49
PROVIDERS: ATTEND Internal Medicine Gastroenterology
DX: K57.81 Diverticulitis of intestine, part unspecified, with perforation and abscess with bleeding (principal); R93.2 Abnormal findings on diagnostic imaging of liver and biliary tract
CPT/HCPCS: 76705

== ENCOUNTER 2019-05-31 12:39 | Outpatient (CLI) | payer MEDICARE ==
--- NOTE | 2019-05-31 13:53 | RAD ---
Exam: Lumbar spine 4 views HISTORY: Lumbar radiculopathy. FINDINGS: AP, lateral neutral, lateral flexion and lateral extension views of the lumbar spine are rodriguez bmitted for dictation. 5 lumbar type vertebral bodies. Laminectomy at L3 and L4. In the neutral position, there is loss of disc space height and osteophyte formation at L2-L3. Loss o f disc space height at L4-L5 is noted. Spondylolisthesis: L3-L4: Neutral 2.2 mm of anterolisthesis; flexion 2.5 mm of anterolisthesis; extension: 2.2 mm IMPRESSION: Degenerative changes of the lumbar spine as above
--- NOTE | 2019-05-31 14:00 | RAD ---
6 VIEWS CERVICAL SPINE: Date: 05/31/2019 COMPARISON: None. HISTORY: Bilateral hand pain, numbness and tingling of bilateral upper extremities, bilateral cervica l radiculopathy. FINDINGS: Open-mouth odontoid view demonstrates a normal-appearing dens and C1-2 articulation. There is atherosclerotic calcification of the aortic arch. There is multilevel mid cervical spine facet and uncovertebral osteophyte formation, right greater than left. There is calcification overlying the neck on the left suggesting carotid atherosclerotic disease. The neutral lateral examination demonstrates mild anterolisthesis at C3-4 measuring approximately 4 m m. There is disc space narrowing with degenerative endplate change and anterior osteophyte formation at C4-5, C5-6, and C6-7. Cervicothoracic junction appears intact on the swimmer's lateral view. Flexion imaging demonstrates anterolisthesis at C2-C3 measuring 3 mm and at C3-4 measuring 5-6 mm. Wi th extension, the anterolisthesis at C2-3 is reduced, and the anterolisthesis at C3-4 measures less than 2 mm. IMPRESSION: Multilevel degenerative change within the cervical spine as detailed above. There is 5-6 mm of masoud listhesis at C3-4 with flexion. Transcribed Date/Time: 05/31/2019 2:03 PM
--- NOTE | 2019-05-31 14:24 | MRI ---
MRI CERVICAL SPINE WITHOUT CONTRAST: Date: 05/31/19 COMPARISON: None. HISTORY: Bilateral hand pain with tingling and numbness for a few years. TECHNIQUE: Multiplanar, multisequence MR imaging of the cervical spine provided without contrast. FINDINGS: The sagittal STIR imaging demonstrates no focal area of osseous marrow edema. There is no significant anterolisthesis or retrolisthesis within the cervical spine. No prevertebral soft tissue abnormality. The provided axial imaging is limited by persistent motion artifact. C2-3: There is disc desiccation. No significant central canal or neural foraminal stenosis. C3-4: Disc desiccation with mild disc bulge. No significant central canal stenosis. Mild bilateral f acet hypertrophy with no significant neural foraminal stenosis on either side. C4-5: There is disc space narrowing with disc desiccation and disc bulge partially effacing the vent ral thecal sac and causing a mild degree of central canal stenosis. There is bilateral uncovertebral osteophyte formation with mild/moderate bilateral neural foraminal stenosis, left greater than right. C5-6: There is disc space narrowing and disc desiccation with disc bulge effacing the ventral thecal sac and abutting the ventral aspect of the cord with a moderate degree of central canal stenosis. Fa cet and uncovertebral osteophyte formation noted bilaterally with moderate bilateral neural foraminal stenosis. C6-7: There is disc space narrowing, disc desiccation, and disc osteophyte complex with mild associa patrick central canal stenosis. Bilateral facet and uncovertebral osteophyte formation, left greater than right. Moderate/severe bilateral neural foraminal stenosis, left greater than right. C7-T1: No significant central canal or neural foraminal stenosis. The cervical cord demonstrates no focal area of signal abnormality. 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 Detailed asse ssment is somewhat limited secondary to persistent motion artifact. POS: OFF
== END 2019-05-31 12:40 | disposition home or self-care (01) ==
LOC: TBSIIMAG 12:39
PROVIDERS: ATTEND Neurological Surgery
DX: M47.26 Other spondylosis with radiculopathy, lumbar region (principal); M47.22 Other spondylosis with radiculopathy, cervical region; M43.12 Spondylolisthesis, cervical region
CPT/HCPCS: 72050; 72110; 72141

== ENCOUNTER 2019-06-27 09:37 | Outpatient (CLI) | payer MEDICARE ==
--- NOTE | 2019-06-27 14:50 | MRI ---
MRI LUMBAR SPINE WITH AND WITHOUT CONTRAST: 06/27/2019 HISTORY: Prior back surgery, back pain, lumbar radiculopathy. COMPARISON: None. TECHNIQUE: Multiplanar, multisequence MR imaging of the lumbar spine is provided with and without contrast. FINDINGS: The sagittal STIR imaging demonstrates no focal area of osseous marrow edema. On the basis of five lumbar type vertebral bodies the conus medullaris terminates at the L1-L2 level. T11-T12: There is disk space narrowing and mild disk bulge with no significant central canal or neur al foraminal stenosis. There is anterior osteophyte formation. T12-L1: There is mild bilateral facet hypertrophy. There is disk space narrowing and disk desiccatio n with no significant central canal or neural foraminal stenosis. L1-L2: There is mild bilateral facet hypertrophy. There is disk space narrowing, disk desiccation an d disk bulge with mild central canal stenosis and mild bilateral neural foraminal stenosis. L2-L3: Bilateral laminectomy changes are present. There is disk space narrowing, degenerative endpla te change, disk bulge, anterior osteophyte formation and vacuum disk formation. There is significant bilateral facet hypertrophy. There is mild right and moderate left neural foraminal stenosis. No sign ificant central canal stenosis. L3-L4: Disk space narrowing with disk desiccation and disk bulge present. Prominent bilateral facet h ypertrophy. Bilateral laminectomy changes are present. No significant central canal stenosis. On the basis of disk bulge and facet hypertrophy there is severe bilateral neural foraminal stenosis. L4-L5: Disk space narrowing, disk desiccation and degenerative endplate change present. There is bila teral facet hypertrophy. Mild left and moderate/severe right neural foraminal stenosis. No significan t central canal stenosis. L5-S1: Bilateral facet hypertrophy and hypertrophy of the ligamentum flavum noted, left greater than right. There is moderate bilateral neural foraminal stenosis. There is mild central canal stenosis wi th moderate left lateral recess stenosis. Vacuum disk formation is noted at the L5-S1 level. The visualized retroperitoneal structures appear grossly unremarkable. Post contrast imaging demonstrates a linear area of enhancement along the anterior aspect of the caud a equina, involving an anterior nerve root, best seen on the [id number] sagittal imaging. This likely represents an enhancing right-sided nerve root, possibly the L4 or L5 nerve root. This is dif ficult to appreciate on the axial imaging. The fat saturated axial post contrast imaging demonstrates mild enhancement of the soft tissues posterior to the thecal sac at L4 and L5, likely on the basis o f postoperative scar. There is also enhancement adjacent to bilateral L3-L4 and L4-L5 facet joints, s uggesting degenerative/inflammatory change. No suspicious osseous enhancement or enhancement of the intervertebral disks. IMPRESSION: Multilevel postoperative and degenerative change within the lumbar spine. Findings include severe vonda ateral neural foraminal stenosis at L3-L4 and an enhancing ventral nerve root on the right which may signify arachnoiditis/nerve root inflammation. POS: OFF
== END 2019-06-27 09:38 | disposition home or self-care (01) ==
LOC: TBSIIMAG 09:37
PROVIDERS: ATTEND Neurological Surgery
DX: M54.5 Low back pain (principal); M51.36 Other intervertebral disc degeneration, lumbar region; M47.812 Spondylosis without myelopathy or radiculopathy, cervical region; M48.02 Spinal stenosis, cervical region
CPT/HCPCS: 72158; 82565

== ENCOUNTER 2019-07-03 07:27 | Outpatient (CLI) | payer MEDICARE ==
--- NOTE | 2019-07-03 09:18 | ULT ---
LIVER ULTRASOUND INCLUDING VASCULAR DUPLEX WITH COLOR AND SPECTRAL DOPPLER IMAGING: HISTORY: Cirrhosis. COMPARISON: 01/01/2019 FINDINGS: Stable heterogeneous liver echogenicity. No evidence of gallstones. Common bile duct 0.4 cm. No focal liver masses. No splenomegaly. Hepatic venous and portal venous flow is antegrade. IMPRESSION: Stable appearing liver vascular duplex ultrasound. Antegrade hepatic and portal venous flow. No new p rocess. POS: [facility]
== END 2019-07-03 07:28 | disposition home or self-care (01) ==
LOC: BICULT 07:27
PROVIDERS: ATTEND Physician Assistant Medical
DX: K75.81 Nonalcoholic steatohepatitis (NASH) (principal); K21.9 Gastro-esophageal reflux disease without esophagitis; Z86.010 Personal history of colon polyps
CPT/HCPCS: 76705

== ENCOUNTER 2019-07-16 12:19 | Outpatient (CLI) | payer MEDICARE ==
--- NOTE | 2019-07-16 12:36 | RAD ---
EXAM: XR Lumbar Spine 2 Or 3 View PROVIDED CLINICAL HISTORY: Low back pain. COMPARISON: 05/31/2019. FINDINGS: Multilevel degenerative changes are seen with narrowing of the intervertebral disc spaces at all leve ls and multilevel osteophytes present involving lumbar spine. Vacuum phenomenon is seen in the L2-3 intervertebral disc space. As noted on the prior exam, there is slight grade 1 anterolisthesis of L3 on L4 without abnormal translational motion seen between the flexion-extension views. There is slight retrolisthesis of L2 on L3 also similar to prior study. The vertebral body heights are within normal limits. Dense vascular calcifications are seen in the abdominal aorta. IMPRESSION: Multilevel degenerative changes with stable grade 1 anterolisthesis of L3 on L4 and retrolisthesis of L2 on L3. No abnormal translational motion is seen between the flexion and extension views lumbar spine.
== END 2019-07-16 12:20 | disposition home or self-care (01) ==
LOC: BICRAD 12:19
PROVIDERS: ATTEND Neurological Surgery
DX: M47.26 Other spondylosis with radiculopathy, lumbar region (principal); M43.16 Spondylolisthesis, lumbar region
CPT/HCPCS: 72100

== ENCOUNTER 2019-07-26 11:43 | Outpatient (CLI) | payer MEDICARE ==
--- NOTE | 2019-07-26 13:32 | MMO ---
Bilateral MAMMO Bilat Screen [facility]. CLINICAL HISTORY: Patient is 79 years old and is seen for screening. The patient has no family history of breast cancer. The patient has no personal history of cancer. The patient has a history of right Excisional Biopsy at age 54 - benign. VIEWS: The views performed were: bilateral craniocaudal with tomosynthesis and bilateral mediolateral oblique with tomosynthesis. FILMS COMPARED: The present examination has been compared to prior imaging studies performed at [facility] on 06/22/2015, 06/23/2016, 06/26/2017 and 06/28/2018. This study has been interpreted with the assistance of computer-aided detection. MAMMOGRAM FINDINGS: There are scattered fibroglandular densities. Finding 1: There are benign appearing calcifications seen in both breasts. Finding 2: There is a stable area of architectural distortion seen in the middle region of the right breast at 12 o'clock. There are no suspicious masses, suspicious calcifications, or new areas of architectural distortion. IMPRESSION: THERE IS NO MAMMOGRAPHIC EVIDENCE OF MALIGNANCY. A ROUTINE FOLLOW-UP MAMMOGRAM IN 1 YEAR IS RECOMMENDED. THE RESULTS OF THIS EXAM WERE SENT TO THE PATIENT. ACR BI-RADS Category 2 - Benign finding MAMMOGRAPHY NOTE: 1. A negative mammogram report should not delay a biopsy if a dominant of clinically suspicious mass is present. 2. Approximately 10% to 15% of breast cancers are not detected by mammography. 3. Adenosis and dense breasts may obscure an underlying neoplasm. Reported by: ROBERT MELÉNDEZ MD Electonically Signed: [id number]
== END 2019-07-26 11:44 | disposition home or self-care (01) ==
LOC: BICMAMMO 11:43
PROVIDERS: ATTEND Internal Medicine
DX: Z12.31 Encounter for screening mammogram for malignant neoplasm of breast (principal); Z91.89 Other specified personal risk factors, not elsewhere classified
CPT/HCPCS: 77063; 77067

== ENCOUNTER 2020-07-27 15:25 | Outpatient (CLI) | payer MEDICARE ==
--- NOTE | 2020-07-27 16:37 | MMO ---
Bilateral MAMMO Bilat Screen [facility]. CLINICAL HISTORY: Patient is 80 years old and is seen for screening. The patient has no family history of breast cancer. The patient has no personal history of cancer. The patient has a history of right Excisional Biopsy at age 54 - benign. VIEWS: The views performed were: bilateral craniocaudal with tomosynthesis and bilateral mediolateral oblique with tomosynthesis. FILMS COMPARED: The present examination has been compared to prior imaging studies performed at [facility] on 06/23/2016, 06/26/2017, 06/28/2018 and 07/26/2019. This study has been interpreted with the assistance of computer-aided detection. MAMMOGRAM FINDINGS: There are scattered fibroglandular densities. Benign calcifications are noted bilaterally. There are no suspicious masses, suspicious calcifications, or new areas of architectural distortion. IMPRESSION: THERE IS NO MAMMOGRAPHIC EVIDENCE OF MALIGNANCY. A ROUTINE FOLLOW-UP MAMMOGRAM IN 1 YEAR IS RECOMMENDED. THE RESULTS OF THIS EXAM WERE SENT TO THE PATIENT. ACR BI-RADS Category 2 - Benign finding MAMMOGRAPHY NOTE: 1. A negative mammogram report should not delay a biopsy if a dominant of clinically suspicious mass is present. 2. Approximately 10% to 15% of breast cancers are not detected by mammography. 3. Adenosis and dense breasts may obscure an underlying neoplasm. Reported by: HARRISON BLAIR MD Electonically Signed: [id number]
== END 2020-07-27 15:26 | disposition home or self-care (01) ==
LOC: BICMAMMO 15:25
PROVIDERS: ATTEND Internal Medicine
DX: Z12.31 Encounter for screening mammogram for malignant neoplasm of breast (principal); Z91.89 Other specified personal risk factors, not elsewhere classified
CPT/HCPCS: 77063; 77067

== ENCOUNTER 2020-12-25 08:53 | Outpatient (CLI) | payer MEDICARE | END 2020-12-25 08:54 | disposition home or self-care (01) | LOC: BICULT 08:53 | PROVIDERS: ATTEND Internal Medicine Gastroenterology | DX: K21.9 Gastro-esophageal reflux disease without esophagitis (principal); K75.81 Nonalcoholic steatohepatitis (NASH); R16.0 Hepatomegaly, not elsewhere classified; Z86.010 Personal history of colon polyps | CPT/HCPCS: 76705 ==

== ENCOUNTER 2021-04-09 14:16 | Outpatient (CLI) | payer MEDICARE | END 2021-04-09 14:17 | disposition home or self-care (01) | LOC: BICMRI 14:16 | PROVIDERS: ATTEND Anesthesiology Pain Medicine | DX: M51.16 Intervertebral disc disorders with radiculopathy, lumbar region (principal); M51.37 Other intervertebral disc degeneration, lumbosacral region | CPT/HCPCS: 72148 ==

== ENCOUNTER 2021-07-14 12:37 | Outpatient (CLI) | payer MEDICARE ==
[~2021-07-14 12:37] MED LIST: Magnevist 469MG/ML 20 ML VIAL ONE
== END 2021-07-14 12:38 | disposition home or self-care (01) ==
LOC: BICMRI 12:37
PROVIDERS: ATTEND Internal Medicine Gastroenterology
DX: K75.81 Nonalcoholic steatohepatitis (NASH) (principal); K74.60 Unspecified cirrhosis of liver; R16.0 Hepatomegaly, not elsewhere classified; Z86.010 Personal history of colon polyps
CPT/HCPCS: 74183; A9579

== ENCOUNTER 2021-08-02 08:55 | Outpatient (CLI) | payer MEDICARE | END 2021-08-02 08:56 | disposition home or self-care (01) | LOC: BICMAMMO 08:55 | PROVIDERS: ATTEND Internal Medicine | DX: Z12.31 Encounter for screening mammogram for malignant neoplasm of breast (principal) | CPT/HCPCS: 77063; 77067 ==

== ENCOUNTER 2022-09-16 11:40 | Outpatient (CLI) | payer MEDICARE | END 2022-09-16 11:41 | disposition home or self-care (01) | LOC: BICMAMMO 11:40 | PROVIDERS: ATTEND Internal Medicine | DX: Z12.31 Encounter for screening mammogram for malignant neoplasm of breast (principal); Z91.89 Other specified personal risk factors, not elsewhere classified | CPT/HCPCS: 77063; 77067 ==

== ENCOUNTER 2023-05-22 09:52 | Outpatient (CLI) | payer MEDICARE | END 2023-05-22 09:53 | disposition home or self-care (01) | LOC: ULT 09:52 | PROVIDERS: ATTEND Internal Medicine Gastroenterology | DX: K74.60 Unspecified cirrhosis of liver (principal); K75.81 Nonalcoholic steatohepatitis (NASH); K30 Functional dyspepsia; Z86.010 Personal history of colon polyps; K76.0 Fatty (change of) liver, not elsewhere classified | CPT/HCPCS: 76705 ==

== ENCOUNTER 2023-11-10 14:36 | Outpatient (CLI) | payer MEDICARE | END 2023-11-10 14:37 | disposition home or self-care (01) | LOC: MRI 14:36 | PROVIDERS: ATTEND Anesthesiology Pain Medicine | DX: M51.16 Intervertebral disc disorders with radiculopathy, lumbar region (principal); M47.817 Spondylosis without myelopathy or radiculopathy, lumbosacral region; M48.061 Spinal stenosis, lumbar region without neurogenic claudication; M48.07 Spinal stenosis, lumbosacral region | CPT/HCPCS: 72148 ==